=== PATIENT | female | born 1965 | race Caucasian/White ===

== ENCOUNTER 2019-08-26 09:16 | Outpatient (REF) | payer BC, SELFPAY ==
[2019-08-26 21:25] LABS: ALT 31 U/L (14-59); AST 41 U/L (15-37); Albumin 3.9 g/dL (3.4-5.0); Alkaline Phosphatase 124 U/L (46-116); Anion Gap 10.4 mmol/L (3-11); BUN 11 mg/dL (7-18); Bilirubin, Total 0.3 mg/dL (0.2-1.0); CO2 26.6 mmol/L (21.0-32.0); CREATININE 0.68 mg/dL (0.55-1.02); Calcium 9.1 mg/dL (8.5-10.1); Calculated LDL 128 mg/dL; Chloride 103 mmol/L (98-107); Cholesterol 203 mg/dL (50-200); Glucose 90 mg/dL (70-100); HDL Cholesterol 63 mg/dL (40-60); Potassium 4.6 mmol/L (3.5-5.1); Sodium 140 mmol/L (136-145); TSH 2.05 uIU/mL (0.36-3.74); Total Protein 7.4 g/dL (6.4-8.2); Triglyceride 60 mg/dL (30-150)
[2019-08-26 21:26] LABS: HCT 39.8 % (36.0-46.0); Mean Corp. HGB Concentration 32.7 g/dL (32.0-36.0); Mean Corpuscular Hemoglobin 29.1 pg (27.0-33.0); Mean Corpuscular Volume 89.2 fL (80-95); Mean Platelet Volume 10.1 fL (8.0-11.0); Platelet Count 387 x1000/uL (130-400); RBC 4.46 m/cumm (4.00-5.20); RBC Distribution Width 12.6 % (11.7-14.6); White Blood Cell Count 7.16 k/cumm (4.4-10.8)
[2019-08-26 21:55] LABS: Hemoglobin A1C 6.8 % (4.5-6.2)
[2019-08-30 12:31] LABS: IgA 303 mg/dL (85-499); Interpretation SEE COMMENTS; Tissue Transglutaminase IgA 1.2 U/mL (<4.0)
== END 2019-08-26 09:36 ==
LOC: NCHCN 09:16
PROVIDERS: PCP Family Medicine; Visit Provider Nurse Practitioner Family
DX: R10.9 Unspecified abdominal pain (principal); R63.5 Abnormal weight gain; Z13.29 Encounter for screening for other suspected endocrine disorder; Z13.1 Encounter for screening for diabetes mellitus; Z13.220 Encounter for screening for lipoid disorders
CPT/HCPCS: 80053; 80061; 82784; 83516; 85027; 83036; 84443

== ENCOUNTER 2019-08-31 08:06 | Outpatient (REF) | payer BC, SELFPAY ==
[2019-08-31 21:48] LABS: Glucose 117 mg/dL (70-100)
== END 2019-08-31 08:26 ==
LOC: NCHCN 08:06
PROVIDERS: PCP Nurse Practitioner Family; Visit Provider Nurse Practitioner Family
DX: Z13.1 Encounter for screening for diabetes mellitus (principal)
CPT/HCPCS: 82947

== ENCOUNTER 2020-05-05 10:40 | Outpatient (REF) | payer BC, SELFPAY ==
[2020-05-05 21:17] LABS: Hemoglobin A1C 6.6 % (3.8-5.6)
[2020-05-05 21:18] LABS: ALT 23 U/L (14-59); AST 20 U/L (15-37); Alkaline Phosphatase 87 U/L (46-116); Anion Gap 5.4 mmol/L (3-11); BUN 18 mg/dL (7-18); Bilirubin, Total 0.4 mg/dL (0.2-1.0); CO2 29.6 mmol/L (21.0-32.0); CREATININE 0.82 mg/dL (0.55-1.02); Calcium 9.4 mg/dL (8.5-10.1); Calculated LDL 119 mg/dL (<100); Chloride 104 mmol/L (98-107); Cholesterol 203 mg/dL (<200); Glucose 107 mg/dL (74-106); HDL Cholesterol 60 mg/dL (40-60); Potassium 4.1 mmol/L (3.5-5.1); Sodium 139 mmol/L (136-145); Total Protein 7.2 g/dL (6.4-8.2); Triglyceride 124 mg/dL (<150)
[2020-05-05 21:33] LABS: COMMENT (LAB VIEW ONLY) 148.46 mg/dL; Microalb ug/mg Crea 4.6 ug/mg Cr
== END 2020-05-05 11:00 ==
LOC: NCHCN 10:40
PROVIDERS: PCP Nurse Practitioner Family; Visit Provider Nurse Practitioner Family
DX: E11.9 Type 2 diabetes mellitus without complications (principal); R94.5 Abnormal results of liver function studies
CPT/HCPCS: 80053; 80061; 82043; 82570; 83036

== ENCOUNTER 2020-12-21 07:59 | Outpatient (REF) | payer BC, SELFPAY ==
[2020-12-22 07:45] LABS: Bilirubin Negative (Negative); Blood Small (Negative); Clarity Clear (Clear); Glucose 500 mg/dL (Negative); Ketones Negative (Negative); Leukocyte Esterase Negative (Negative); Nitrite Positive (Negative); Specific Gravity >= 1.030 (1.005-1.025); pH 5.5 (5-8)
[2020-12-22 07:50] LABS: Bacteria Negative HPF (Negative); C & S Indicated? C&S Done As Ordered; Casts Negative LPF (Negative); Crystals Negative HPF (Negative); Epithelial Cells Rare HPF (Negative); Mucus Trace (Negative); WBC 0-2 HPF (0-5)
== END 2020-12-21 08:19 ==
LOC: NCHCN 07:59
PROVIDERS: PCP Nurse Practitioner Family; Visit Provider Nurse Practitioner Family
DX: R30.0 Dysuria (principal)
CPT/HCPCS: 87077; 81003; 81015; 87086; 87186

== ENCOUNTER 2021-02-07 08:20 | Outpatient (REF) | payer BC, SELFPAY ==
[2021-02-07 13:12] LABS: Hemoglobin A1C 6.7 % (<5.7)
== END 2021-02-07 08:21 | disposition home or self-care (01) ==
LOC: NCHCN 08:20
PROVIDERS: PCP Nurse Practitioner Family; Visit Provider Nurse Practitioner Community Health
DX: E11.9 Type 2 diabetes mellitus without complications (principal)
CPT/HCPCS: 80048; 83036

== ENCOUNTER 2021-02-09 07:43 | Outpatient (REF) | payer BC, SELFPAY ==
[2021-02-09 15:02] LABS: Anion Gap 8.7 mmol/L (3-11); BUN 22 mg/dL (7-18); CO2 27.3 mmol/L (21.0-32.0); CREATININE 0.7 mg/dL (0.55-1.02); Calcium 9.2 mg/dL (8.5-10.1); Calculated LDL 136 mg/dL (<100); Chloride 104 mmol/L (98-107); Cholesterol 213 mg/dL (<200); Glucose 115 mg/dL (74-106); HDL Cholesterol 66 mg/dL (40-60); Potassium 4.3 mmol/L (3.5-5.1); Sodium 140 mmol/L (136-145); Triglyceride 56 mg/dL (<150)
== END 2021-02-09 07:44 | disposition home or self-care (01) ==
LOC: NCHCN 07:43
PROVIDERS: PCP Nurse Practitioner Family; Visit Provider Nurse Practitioner Community Health
DX: E11.9 Type 2 diabetes mellitus without complications (principal); R94.5 Abnormal results of liver function studies; E66.3 Overweight; Z51.81 Encounter for therapeutic drug level monitoring
CPT/HCPCS: 80048; 80061

== ENCOUNTER 2021-05-14 11:31 | Outpatient (REF) | payer BC, SELFPAY ==
[2021-05-14 15:26] LABS: COMMENT (LAB VIEW ONLY) 117.46 mg/dL; Microalb ug/mg Crea 6.8 ug/mg Cr
== END 2021-05-14 11:32 | disposition home or self-care (01) ==
LOC: NCHCN 11:31
PROVIDERS: PCP Nurse Practitioner Family; Visit Provider Nurse Practitioner Community Health
DX: E11.9 Type 2 diabetes mellitus without complications (principal)
CPT/HCPCS: 82043; 82570

== ENCOUNTER 2021-08-09 11:50 | Outpatient (REF) | payer BC, SELFPAY ==
[2021-08-09 17:17] LABS: ALT 22 U/L (14-59); AST 20 U/L (15-37); Alkaline Phosphatase 94 U/L (46-116); Anion Gap 9.6 mmol/L (3-11); BUN 15 mg/dL (7-18); Bilirubin, Total 0.5 mg/dL (0.2-1.0); CO2 26.4 mmol/L (21.0-32.0); CREATININE 0.8 mg/dL (0.55-1.02); Calcium 9.1 mg/dL (8.5-10.1); Calculated LDL 140 mg/dL (<100); Chloride 106 mmol/L (98-107); Cholesterol 218 mg/dL (<200); Glucose 110 mg/dL (74-106); HDL Cholesterol 59 mg/dL (40-60); Hemoglobin A1C 6.6 % (<5.7); Potassium 4.2 mmol/L (3.5-5.1); Sodium 142 mmol/L (136-145); Total Protein 7.1 g/dL (6.4-8.2); Triglyceride 95 mg/dL (<150)
== END 2021-08-09 11:51 | disposition home or self-care (01) ==
LOC: NCHCN 11:50
PROVIDERS: PCP Nurse Practitioner Family; Visit Provider Nurse Practitioner Family
DX: Z00.00 Encounter for general adult medical examination without abnormal findings (principal); E11.9 Type 2 diabetes mellitus without complications; R94.5 Abnormal results of liver function studies; E66.3 Overweight
CPT/HCPCS: 80053; 80061; 83036

== ENCOUNTER 2021-08-14 13:34 | Outpatient (REF) | payer BC, SELFPAY ==
--- NOTE | 2021-08-14 10:45 | PAPFT_PTH ---
PATIENT: Jada Velazquez LOC: [facility]#:[id number] AGE/SX: 55/F ROOM: RE08/14/[address]: Haley Ortiz : 1965 BED: DIS: 08/14/2021 SPEC #: [id number] RECD: 08/15/21 12:55 STATUS: GAYE RENeelam #: [id number] KARLENE: 08/14/21 10:[address]: Haley Hui DEPT: [facility] / [facility] Cytology RECD BY: Kailyn Hui Tissues: 1 - CX/ENDOCX FOR PAP SMEARS Procedures: PAP THIN PREP/UVM Screening HPV DNA PROBE Comments: [id number]
[2021-08-14 21:14] LABS: COMMENT (LAB VIEW ONLY) 56.38 mg/dL; Microalb ug/mg Crea 10.3 ug/mg Cr
== END 2021-08-14 13:35 | disposition home or self-care (01) ==
LOC: NCHCN 13:34
PROVIDERS: PCP Nurse Practitioner Family; Visit Provider Nurse Practitioner Family
DX: E11.9 Type 2 diabetes mellitus without complications (principal); Z12.4 Encounter for screening for malignant neoplasm of cervix; Z00.00 Encounter for general adult medical examination without abnormal findings; Z11.51 Encounter for screening for human papillomavirus (HPV)
CPT/HCPCS: 88142; 82043; 82570; 87624

== ENCOUNTER 2022-08-13 19:59 | Outpatient (REF) | payer BC, SELFPAY ==
[2022-08-13 15:10] LABS: Anion Gap 7.8 mmol/L (3-11); BUN 14 mg/dL (7-18); CO2 28.2 mmol/L (21.0-32.0); CREATININE 0.7 mg/dL (0.55-1.02); Calcium 9.5 mg/dL (8.5-10.1); Chloride 103 mmol/L (98-107); Estimated GFR 100.81 (mL/min/1.73m2); Glucose 101 mg/dL (74-106); Potassium 4.4 mmol/L (3.5-5.1); Sodium 139 mmol/L (136-145); TSH 1.65 uIU/mL (0.36-3.74)
[2022-08-14 10:21] LABS: Hepatitis C Ab w Rflx HCV PCR Negative (Negative)
[2022-08-14 10:34] LABS: HIV-1/2 Ag & Ab Screen Negative (Negative)
== END 2022-08-13 20:00 | disposition home or self-care (01) ==
LOC: NCHCN 19:59
PROVIDERS: PCP Nurse Practitioner Family; Visit Provider Nurse Practitioner Family
DX: Z11.4 Encounter for screening for human immunodeficiency virus [HIV] (principal); Z11.59 Encounter for screening for other viral diseases; R53.83 Other fatigue; E11.9 Type 2 diabetes mellitus without complications
CPT/HCPCS: 80048; 86803; 87389; 84443

== ENCOUNTER 2022-09-06 15:51 | Outpatient (REF) | payer BC, SELFPAY ==
[2022-09-06 17:08] LABS: COMMENT (LAB VIEW ONLY) 111.37 mg/dL; Microalb ug/mg Crea 2.9 ug/mg Cr
== END 2022-09-06 15:52 | disposition home or self-care (01) ==
LOC: NCHCN 15:51
PROVIDERS: PCP Nurse Practitioner Family; Visit Provider Nurse Practitioner Family
DX: E11.9 Type 2 diabetes mellitus without complications (principal)
CPT/HCPCS: 82043; 82570

== ENCOUNTER 2023-08-05 13:49 | Outpatient (REF) | payer BC, SELFPAY ==
[2023-08-05 15:46] LABS: Abs Immature Grans 0.02 10^3/uL (0.0-0.06); Absolute Basophil Count 0.06 10^3/uL (0.0-0.2); Absolute Eosinophil Count 0.24 10^3/uL (0.0-0.7); Absolute Lymphocyte Count 2.99 10^3/uL (1.2-3.4); Absolute Monocyte Count 0.51 10^3/uL (0.1-0.8); Absolute Neutrophil Count 3.86 10^3/uL (1.2-6.7); Basophils % 0.8; Eosinophils % 3.1; HCT 42.9 % (36.0-46.0); HGB 14.2 g/dL (11.2-15.7); Immature Grans % 0.3; Lymphocytes % 38.9; MCH 29.6 pg (27.0-33.0); MCHC 33.1 % (32.0-36.0); MCV 89 fL (80-95); MPV 10.2 fL (8.0-11.0); Monocytes % 6.6; Neutrophils % 50.3; Platelet Count 335 10^3/uL (130-400); RDW 12.3 % (11.7-14.6); RDW-SD 40.7 fL; WBC 7.68 10^3/uL (4.4-10.8)
[2023-08-05 16:19] LABS: ALT 21 U/L (14-59); AST 25 U/L (15-37); Alkaline Phosphatase 90 U/L (46-116); Anion Gap 9.9 mmol/L (3-11); BUN 22 mg/dL (7-18); Bilirubin, Total 0.7 mg/dL (0.2-1.0); CO2 26.1 mmol/L (21.0-32.0); CREATININE 0.8 mg/dL (0.55-1.02); Calcium 9.4 mg/dL (8.5-10.1); Chloride 102 mmol/L (98-107); Estimated GFR 85.35 (mL/min/1.73m2); Ferritin 158 ng/mL (8-252); Glucose 122 mg/dL (74-106); Potassium 3.7 mmol/L (3.5-5.1); Sodium 138 mmol/L (136-145); TSH 2.74 uIU/mL (0.36-3.74); Total Protein 7.6 g/dL (6.4-8.2)
[2023-08-05 16:55] LABS: Hemoglobin A1C 6.8 % (<5.7)
== END 2023-08-05 13:50 | disposition home or self-care (01) ==
LOC: NCHCN 13:49
PROVIDERS: PCP Nurse Practitioner Family; Visit Provider Nurse Practitioner Family
DX: R53.83 Other fatigue (principal); E11.9 Type 2 diabetes mellitus without complications; E66.3 Overweight; Z13.0 Encounter for screening for diseases of the blood and blood-forming organs and certain disorders involving the immune mechanism
CPT/HCPCS: 80053; 82728; 83036; 84443; 85025

== ENCOUNTER 2024-02-10 09:36 | Outpatient (REF) | payer BC, SELFPAY ==
[2024-02-10 15:02] LABS: Anion Gap 7.7 mmol/L (3-11); BUN 20 mg/dL (7-18); CO2 26.3 mmol/L (21.0-32.0); CREATININE 0.7 mg/dL (0.55-1.02); Calcium 9.4 mg/dL (8.5-10.1); Calculated LDL 131 mg/dL (<100); Chloride 107 mmol/L (98-107); Cholesterol 210 mg/dL (<200); Estimated GFR 99.57 (mL/min/1.73m2); Glucose 115 mg/dL (74-106); HDL Cholesterol 62 mg/dL (40-60); Potassium 4.2 mmol/L (3.5-5.1); Sodium 141 mmol/L (136-145); Triglyceride 85 mg/dL (<150)
[2024-02-10 15:09] LABS: Hemoglobin A1C 6.8 % (<5.7)
== END 2024-02-10 09:37 | disposition home or self-care (01) ==
LOC: NCHCN 09:36
PROVIDERS: PCP Nurse Practitioner Family; Referring Provider Nurse Practitioner Family; Visit Provider Nurse Practitioner Family
DX: E11.9 Type 2 diabetes mellitus without complications (principal); E78.5 Hyperlipidemia, unspecified
CPT/HCPCS: 80048; 80061; 83036

== ENCOUNTER 2024-08-09 13:51 | Outpatient (REF) | payer BC, SELFPAY ==
[2024-08-09 15:22] LABS: COMMENT (LAB VIEW ONLY) 92.85 mg/dL; Microalb ug/mg Crea 8.8 ug/mg Cr
== END 2024-08-09 13:52 | disposition home or self-care (01) ==
LOC: NCHCN 13:51
PROVIDERS: PCP Nurse Practitioner Family; Visit Provider Nurse Practitioner Family
DX: N18.9 Chronic kidney disease, unspecified (principal)
CPT/HCPCS: 82043; 82570

== ENCOUNTER 2025-02-23 09:33 | Outpatient (REF) | payer BC, SELFPAY ==
[2025-02-23 14:56] LABS: Hemoglobin A1C 6.8 % (<5.7)
[2025-02-23 15:08] LABS: Anion Gap 4.5 mmol/L (3-11); BUN 19 mg/dL (7-18); CO2 29.5 mmol/L (21.0-32.0); CREATININE 0.7 mg/dL (0.55-1.02); Calcium 9.6 mg/dL (8.5-10.1); Calculated LDL 149 mg/dL (<100); Chloride 104 mmol/L (98-107); Cholesterol 241 mg/dL (<200); Estimated GFR 98.95 (mL/min/1.73m2); Glucose 124 mg/dL (74-106); HDL Cholesterol 72 mg/dL (>or=50); Potassium 4.7 mmol/L (3.5-5.1); Sodium 138 mmol/L (136-145); Triglyceride 103 mg/dL (<150)
== END 2025-02-23 09:34 | disposition home or self-care (01) ==
LOC: NCHCN 09:33
PROVIDERS: PCP Nurse Practitioner Family; Visit Provider Nurse Practitioner Family
DX: E11.9 Type 2 diabetes mellitus without complications (principal); E78.5 Hyperlipidemia, unspecified
CPT/HCPCS: 80048; 80061; 83036

== ENCOUNTER 2025-03-14 07:38 | Day surgery (SDC) | payer BC, SELFPAY ==
--- NOTE | 2025-03-13 18:21 | W.PM.DSUDISC ---
Date of service: 03/14/25 Discharge Plan Disposition Patient Disposition: Home Condition: Good Discharge Details Reason For Visit: screening colonoscopy Attending Provider: Jong Barrow Primary Care Provider: Haley Hui Home Meds and New Rx's Prescriptions: Continued Jardiance 25 mg tablet 25 mg PO DAILY ibuprofen [Advil Liqui-Gel] 200 MG capsule 400 mg PO Q6H PRN Discontinued bisacodyl [Dulcolax (bisacodyl)] 5 mg tablet,delayed release (DR/EC) 5 mg PO ONCE Qty: 4 0RF Rx Instructions: Take per colonoscopy instructions provided by ordering providers office polyethylene glycol 3350 17 gram/dose powder 17 g PO ONCE Qty: 238 0RF Rx Instructions: Take per colonoscopy instructions provided by ordering providers office Discharge Instructions Instructions: Colon polyps Additional Instructions: Jada, it was great meeting you today, and I hope you feel well after the procedure. Everything went very smoothly. Your prep was excellent, and I could see everything totally fine. I did find, and removed a total of 4 polyps today. 2 of these were extremely small, and I suspect are just hyperplastic polyps, which pose no risk at all. The other 2 seem more consistent with adenomatous polyps, which are thought to be the type associated with colon cancers. To be clear, none of these features appear worrisome for cancer, and this is probably the source of the positive Cologuard test. I took all 4 of these polyps out today with ease, and these will all be sent off to the pathologist for their review. Once we know the exact nature of these polyps, my office will be in touch with recommendations for future colonoscopies. If you need anything, or have any questions, please do not hesitate to ask at any point. 1. If tolerated, consume a soft, low fiber diet for 1-2 days. [address] Do not drive, drink alcohol, operate machinery, make critical decisions, or do activities that require coordination or balance for 24 hours. 3. Because air was put into your colon during the procedure, expelling air from your rectum (passing gas or farting) is normal. 4. You may not have a bowel movement for 1-3 days because of the colonoscopy prep. This is normal. 5. Go directly to the emergency room if you notice any of the following: Develop chills (warm to touch), or if you have a thermometer and your temperature is above 101 Difficulty breathing or difficultly swallowing Persistent vomiting Severe abdominal pain, other than gas cramps Severe chest pain Black, tarry stools Any bleeding ? exceeding one tablespoon 6. Call your physician if the site where your intravenous was started becomes red, swollen, painful, and warm to touch. 7. Your physician has reviewed your pre-procedure medications. Please continue to take those medications as previously ordered. You will be given specific information/education regarding any changes to your medications before leaving. Stand Alone Forms: Anesthesia Discharge InstAnuel Hong (DSU) Activity:: Activity as Tolerated Diet:: As Tolerated Discharge Orders Discharge Orders: Discharge Order (Routine); Ordered 03/13/25 Ordered By: Jong Barrow DS: Diagnosis Discharge Diagnosis (1) Encounter for screening colonoscopy: Status: Acute Asessment and Plan: Follow-up on polypectomy results
--- NOTE | 2025-03-13 18:22 | HPE_ITS ---
Assessment and Plan Assessment and plan (1) Encounter for screening colonoscopy: Status: Acute Assessment and plan: We reviewed the role of screening colonoscopy, especially after positive cologuard testing, as part of routine health maintenance. I explained the risks and the benefits and Jada had the chance to ask any questions. History of Present Illness History of Present Illness Chief Complaint: screening colonoscopy Narrative: 59 y/o female with history of Type 2 DM and HLD presents for colonoscopy rick hernandez pre-op. She had a positive fecal DNA testing. She denies a family history of colon cancer. She denies any changes in bowel habits including bloody or black tarry stools, abdominal pain, diarrhea or constipation. She denies constitutional symptoms. She denies chest pain, palpitations, dyspnea or dyspnea with exertion. She denies prior history or family history of adverse reactions or complications with anesthesia. The patient denies any history of stroke, OK, seizures, bleeding or clotting disorders. She denies having any implanted metal in her body. Since her last office encounter, there have been no major interval changes with regards to the history PFSH All Active Problems (Updated 03/13/25 @ 18:21 by Jong Barrow MD) Encounter for screening colonoscopy (Acute) Insomnia (Acute) Overweight (Acute) Hyperlipidemia (Acute) Type 2 diabetes mellitus (Acute) Medical History (Updated 03/13/25 @ 18:21 by Jong Barrow MD) Fatigue Osteoarthritis History of kidney stones Surgical History History of tubal ligation Social History Smoking/Tobacco Use Status: Never Smoking risk assessment performed?: Yes Alcohol Intake: current Alcohol Intake frequency: holidays/special occasions only Drug use: Never Substance use type: does not use Housing: house Do you feel safe at home: Yes Do you feel safe in your relationship?: Yes Meds Allergies and Home Medications Allergies Allergy/AdvReac Type Severity Reaction Status Date / Time amoxicillin (From Augmentin) Allergy Intermediate Skin Rash Verified 03/11/25 15:25 acetaminophen Allergy hives Verified 03/11/25 15:25 clavulanic acid (From Allergy Skin Rash Verified 03/11/25 15:25 Augmentin) Penicillins Allergy Other (See Verified 03/11/25 15:25 Comment) Home Medications ?Medication ?Instructions ?Recorded ?Confirmed ?Type ibuprofen 200 mg capsule (Advil 400 mg PO Q6H PRN 03/22/18 03/11/25 History Liqui-Gel) empagliflozin 25 mg tablet 25 mg PO DAILY 01/24/25 03/11/25 History (Jardiance) Exam Const General: cooperative, healthy appearing and not in acute distress Neck Neck: normal visual inspection, no lymphadenopathy and supple Resp Effort & Inspection: normal respiratory effort Auscultation: clear to auscultation bilaterally Cardio Jugular venous pressure: no JVD Rate: regular rate Rhythm: regular rhythm Heart Sounds: S1 normal and S2 normal GI Inspection: normal to inspection Palpation: soft, no guarding, no hernias and nontender Percussion: normal to percussion Auscultation: normal bowel sounds Neuro General: patient alert, patient awake and patient oriented x3 Psych Appearance: grossly normal
--- NOTE | 2025-03-13 18:25 | W.COLOREPORT ---
Date of service: 03/14/25 Time of Service: 09:55 Colonoscopy Report Date of procedure: 03/14/25 Pre-op diagnosis general: screening colonoscopy Post-op diagnosis procedure note: other (Colon polyps) Procedure: colonoscopy with polypectomy Surgeon: Jong Barrow Anesthesia Type: General:No Airway Estimated blood loss (mL): 5 Pathology: other (0.25 cm pedunculated polyp at 55 cm, 0.25 cm pedunculated polyp at 25 cm, 0.25 cm flat polyps in the rectum x 2 (single specimen)) Complications: None Disposition: same day Indications: Jada is a 59 year old woman who had a positive cologuard test. She needs a follow up screening colonoscopy Prep: Miralax/Dulcolax Procedure Start Time: 09:32 Procedure End Time: 09:47 Retraction Time: 6 Findings: 0.25 cm pedunculated polyp at 55 cm, 0.25 cm pedunculated polyp at 25 cm, 0.25 cm flat polyps in the rectum x 2 (single specimen) Procedure Description: After the induction of anesthesia, and with the patient in left lateral decubitus position, I began by performing an external anorectal exam.? Perineum and skin were normal, as was the anal verge.? There was no evidence of external hemorrhoids.? Next, I performed a digital rectal exam.? I did not appreciate any abnormal findings.? Next, I advanced a colonoscope into the rectal vault.? I performed retroflexion.? This appeared normal.? Using insufflation, I then advanced the colonoscope beyond the rectal folds and into the sigmoid colon before advancing towards the cecum.? Around 25 cm above the anal verge was a 0.25 cm slightly pedunculated polyp. This was removed with cold snare polypectomy. There was minimal bleeding. Another similar appearing polyp was detected at 55 cm beyond the anal verge. This was also removed with cold snare polypectomy with minimal bleeding. I continued advancing the colonoscope the scope was noted to be in the cecum by identification of the ileocecal valve and appendiceal orifice.? I then began withdrawing the colonoscope using repeated irrigation as necessary for full evaluation of the colonic mucosa. ?The previous 2 polypectomy sites were fine. Once the scope was withdrawn to the level of the rectum, great care was taken to examine portions of the rectal folds.? Within the lower rectum were 2 flat polyps. These appeared consistent with hyperplastic polyps, but to be safe, I did remove these with cold forceps. These were sent as a single specimen entitled rectal polyps. Finally, the scope was withdrawn and the patient was brought to the same-day surgery recovery unit as the anesthetic wore off. ?The findings and instructions were shared with the patient prior to discharge. Wakeman Bowel Prep Wakeman Bowel Prep Right Colon: 3 Left Colon: 3 Transverse Colon: 3 Total Score: 9
[2025-03-14 07:45] VITALS: BP 132/80; PULSE 95; RESP 22; TEMP 36.3; O2SAT 96
[2025-03-14] MEDS: Lactated Ringers 1,000 ML 80 ML IV (08:26)
--- NOTE | 2025-03-14 08:46 | W.ANESPRE ---
General Info Date of Service Date Performed: 03/14/25 Height: 5 ft 4 in Weight: 76.2 kg Body Mass Index (BMI): 28.8 Surgical Procedure: Operation Date: 03/14/25 09:05 Proposed Procedure Side Surgeon p Colonoscopy Jong Barrow MD Actual Procedure Side Surgeon p Colonoscopy Jong Barrow MD Pre-Op Diagnosis Post-Op Diagnosis positive Cologuard testing Meds Allergies and Home Medications Allergies Allergy/AdvReac Type Severity Reaction Status Date / Time amoxicillin (From Augmentin) Allergy Intermediate Skin Rash Verified 03/14/25 08:13 acetaminophen Allergy hives Verified 03/14/25 08:13 clavulanic acid (From Allergy Skin Rash Verified 03/14/25 08:13 Augmentin) Penicillins Allergy Other (See Verified 03/14/25 08:13 Comment) Home Medication ?Medication ?Instructions ?Recorded ibuprofen 200 mg capsule (Advil 400 mg PO Q6H PRN 03/22/18 Liqui-Gel) empagliflozin 25 mg tablet 25 mg PO DAILY 01/24/25 (Jardiance) Current Visit Medications: Current Medications Generic Name Dose Route Start Last Admin Trade Name Freq PRN Reason Stop Dose Admin Ringer's Solution 1,000 mls @ 80 mls/hr 03/14/25 06:00 03/14/25 08:26 IV 03/14/25 23:59 80 mls/hr INFUSION MELO Administration IV Miscellaneous Supplies 1 each 03/14/25 06:00 Iv Access IV 03/14/25 23:59 DIRECTED MELO Sodium Chloride 0 ml 03/14/25 06:00 Normal Saline Flush 10 Ml Syr IV 03/14/25 23:59 PRN PRN Sodium Chloride 0 ml 03/14/25 06:00 Normal Saline 10 Ml Vial IJ 03/14/25 23:59 DIRECTED PRN Sterile Water 0 ml 03/14/25 06:00 Water,Injection,Sterile 10 Ml Vial IJ 03/14/25 23:59 DIRECTED PRN PFSH Active Problems Active Problems: Problem Status Onset Code Encounter for screening colonoscopy Acute Z12.11 Insomnia Acute G47.00 Overweight Acute E66.3 Hyperlipidemia Acute E78.5 Type 2 diabetes mellitus Acute E11.9 Medical History Medical History Fatigue Osteoarthritis History of kidney stones Surgical History Surgical History History of tubal ligation Tobacco Smoking/Tobacco Use Status: Never Alcohol Alcohol Intake: current Alcohol intake frequency: holidays/special occasions only Substance Use Substance use: Never Substance use type: does not use Vital Signs and Lab Results Vital Signs Most Recent Vital Signs in EMR: Most Recent Vital Signs Temp Pulse Resp BP Pulse Ox 36.3 C L 95 H 22 132/80 96 03/14/25 07:45 03/14/25 07:45 03/14/25 07:45 03/14/25 07:45 03/14/25 07:45 Point of Care Results Point of Care Results: Finger Stick Blood Glucose 123 03/14/25 08:36 Lab Results Blood Type / Crossmatch: No Data to Display Complete Blood Count: No Data to Display Complete Metabolic Panel: Sodium 138 mmol/L (136-145) 02/23/25 08:20 Potassium 4.7 mmol/L (3.5-5.1) 02/23/25 08:20 Chloride 104 mmol/L (98-107) 02/23/25 08:20 Carbon Dioxide 29.5 mmol/L (21.0-32.0) 02/23/25 08:20 BUN 19 mg/dL (7-18) H 02/23/25 08:20 Creatinine 0.7 mg/dL (0.55-1.02) 02/23/25 08:20 Est GFR (CKD-EPI 2020) 98.95 (mL/min/1.73m2) 02/23/25 08:20 Calcium 9.6 mg/dL (8.5-10.1) 02/23/25 08:20 Glucose 124 mg/dL (74-106) H 02/23/25 08:20 Hemoglobin A1c 6.8 % (<5.7) H 02/23/25 08:20 Liver Function Panel: No Data to Display Coagulation Panel: No Data to Display Cardiac Panel: No Data to Display Arterial Blood Gas: No Data to Display Venous Blood Gas: No Data to Display Pancreas Panel: No Data to Display Thyroid Panel: No Data to Display Infectious Disease: No Data to Display Blood Cultures: No Data to Display Toxicology Panel: No Data to Display Anesthesia Assessment and Plan Anesthesia History Personal History: No History of Anesthesia Complications Family History: No Family History of Anesthesia Complications Exercise Tolerance Exercise Tolerance: Metabolic Equivalents>4 Pertinent Negatives Pertinent Negatives: No Symptoms of GERD Cardiac & Pulmonary Exam Cardiac Exam: Normal S1/S2 Heart Sounds Pulmonary Exam: Clear Bilateral Breath Sounds Implantable Cardiac Device Does patient have a Pacemaker or an ICD?: No Airway Exam Known Difficult Airway: No Mallampati Class: 1 Mouth Opening: Normal (> 3cm) Thyromental Distance: Greater than 3 cm Neck Range of Motion: Full ROM Neck Circumference: Normal Teeth Condition: Normal Dentition ASA Classification ASA Score: ASA 2 Emergency Case?: No NPO Status NPO Status: NPO Clears >2 hours, Solids >8 hours Anesthesia Plan Resuscitation Status: Full Code Anesthesia Technique: General Anesthesia Airway Planned: Natural Airway Monitors Used: Standard Monitors
[2025-03-14 08:48] VITALS: BMI 28.8
--- NOTE | 2025-03-14 09:35 | BOWEL_PTH ---
PATIENT: Jada Velazquez LOC: [facility]#:[id number] AGE/SX: 59/F ROOM: RE03/14/[address]: Jong Barrow MD : 1965 BED: DIS: 03/14/2025 SPEC #: [id number] RECD: 03/14/25 12:57 STATUS: GAYE REQ #: [id number] KARLENE: 03/14/25 09:[address]: Jong Barrow DEPT: Surgical Specimen RECD BY: Kailyn Hui ENTERED: 03/14/25 12:58 SP TYPE: Bowel OTHR DR: Haley Ortiz Tissues: 1 - BIOPSY BOWEL 2 - BIOPSY BOWEL 3 - BIOPSY BOWEL Procedures: GROSS AND MICRO LEVEL 4 Comments: [id number]
[2025-03-14 09:52] VITALS: BP 102/64; PULSE 78; RESP 16; TEMP 36.1; O2SAT 95
--- NOTE | 2025-03-14 10:02 | W.ANESPOSTOP ---
Postoperative Evaluation Date, Time and Location Date Performed: 03/14/25 Time Performed: 10:02 Patient Location: Day Surgery Unit Vital Signs Most Recent Imported Vital Signs: Most Recent Vital Signs Temp Pulse Resp BP Pulse Ox 36.1 C L 78 16 102/64 95 03/14/25 09:52 03/14/25 09:52 03/14/25 09:52 03/14/25 09:52 03/14/25 09:52 Pain Score Most Recent Pain Score: Most Recent Pain Score Pain Level 0 03/14/25 09:52 Assessment Mental Status: Awake (Alert & Oriented to Patient Baseline) Airway and Respiratory Function: Patent airway with normal (patient baseline) respiratory exam Cardiovascular Function: Hemodynamically Stable Hydration Status: Adequately Hydrated Nausea & Vomiting: No Nausea or Vomiting Pain: Pt. Denies Any Pain Peripheral Nerve Block: Patient did not receive a nerve block
[2025-03-14 10:20] VITALS: BP 115/72; PULSE 65; RESP 17; TEMP 36.2; O2SAT 96
== END 2025-03-14 10:24 | disposition home or self-care (01) ==
LOC: SUR 07:39
PROVIDERS: PCP Nurse Practitioner Family; Visit Provider Surgery
PROC: 0DJD8ZZ Inspection of Lower Intestinal Tract, Via Natural or Artificial Opening Endoscopic (ICD-10-PCS; CPT 45378; principal; 2025-03-14 09:00)
DX: Z12.11 Encounter for screening for malignant neoplasm of colon (principal); K62.1 Rectal polyp; D12.5 Benign neoplasm of sigmoid colon
CPT/HCPCS: 45385; 45380; 88305; J2704